=== PATIENT | female | born 1960 | race Caucasian/White ===

== ENCOUNTER 2016-08-19 16:18 | Emergency (ER) | payer OTHER ==
--- NOTE | ~2016-08-19 | CT57 ---
[facility]. [facility] A Service of [facility] & [facility] RADIOLOGY TEXT RESULTS PATIENT: NEYMAR GIRON LOCATION: SED : 60 UNIT #: [id number] AGE: [address]: CLOVER STEVENSON SEX: F ORDER DR: [id number] [address] [address] [id number] E MR#: [id number] Acc #: [id number] NAME: NEYMAR GIRON : 1960 SEX: F STUDY DATE/TIME: 08/19/2016 18:11 UNIT: SED ROOM: STUDY DESCRIPTION: CT Chest Wo Cont Attending Physician: Clover Stevenson Aprn Ordering Physician: Clover Stevenson Aprn Primary Care Physician: Anna Finnegan M.D. MEDICAL IMAGING REPORT This report is preliminary unless electronic signature is present. EXAM Chest CT no contrast, 08/19/2016 INDICATION 56-year-old female with a muscle spasm under the right breast for years. Pain will not go away today. TECHNIQUE Noncontrast CT of the chest was performed. We have no comparison studies. This CT exam was performed with one or more of the following radiation dose reduction techniques: automatic exposure control, adjustment of mA and/or kV according to patient size, and iterative reconstruction. FINDINGS Please insert CT no swelling which. Exam degraded by noncontrast technique. Lungs are clear. No effusion or pneumothorax. There are 4 or 5 less than 4 mm noncalcified nodular densities in both lungs. These are technically indeterminate. Based upon Fleischner Criteria, however, if the patients is at low risk for malignancy, then no further followup is necessary. If the patient is at higher risk for malignancy then interval followup Juan at low risk for malignancy then no further follow up is necessary. If the patient is at high risk for malignancy and interval followup CT should occur in 1 year. Included thyroid is unremarkable. There is no pericardial effusion. Aorta unremarkable. No adenopathy. Probable prominent breast tissue inferiorly in the breasts bilaterally. If not recently performed, mammography would be recommend for further assessment of the breasts. Included upper abdomen demonstrates surgical absence of the gallbladder. No suspicious bone lesion. No rib fracture. [facility] A Service of [facility] & [facility] RADIOLOGY TEXT RESULTS PATIENT: NEYMAR GIRON LOCATION: SED : 60 UNIT #: [id number] AGE: [address]: CLOVER STEVENSON SEX: F ORDER DR: IMPRESSION 1. No clearly acute process identified. 2. Probable prominent breast tissue bilaterally. This could be better assessed with dedicated mammography if not recently performed. 3. Noncalcified lung nodules bilaterally measuring less than 4 mm. See followup recommendations in the body of the report. Dictated by... Gaetano Medina M.D. THIS IS AN ELECTRONICALLY VERIFIED REPORT Gaetano Medina M.D. at 08/20/2016 2:31 PM Gayatri TD: 08/20/2016 05:13 JOB #: [id number] MEDICAL IMAGING REPORT Page 1 of 1
[~2016-08-19 16:18] MED LIST: ATIVAN PO; BENADRYL25 M3 PO; CLEOCIN PO; DOCUSATE SODIU100 MG PO; EFFEXOR37.5 MG PO; HYDROCORTISONE15 G3 TOP; JANUMET XR 1001 EACH PO; KEFLEX500 MG PO; LEVO-T100 MCG PO; LIDOCAINE-HC 3-07 G2 TOP; LIPITOR40 MG PO; MOBIC PO; NO MEDICATIONS; OMEPRAZOLE40 M1 PO; RANITIDINE HCL150 M1 PO; SYNTHROID0.1 MG PO; ULTRAM PO; VITAMIN D50000 UNIT PO; ZESTRIL2.5 MG PO
[2016-08-19] MEDS ORDERED: FLEXERIL10 MG PO (19:39)
== END 2016-08-19 19:39 | disposition home or self-care (01) ==
LOC: SED 16:18
DX: R07.89 Other chest pain (principal); E11.9 Type 2 diabetes mellitus without complications; K21.9 Gastro-esophageal reflux disease without esophagitis; Z98.890 Other specified postprocedural states; Z90.49 Acquired absence of other specified parts of digestive tract; Z98.51 Tubal ligation status
CPT/HCPCS: 71250; 99285

== ENCOUNTER → 2016-08-29 | Outpatient (CLI) | payer OTHER ==
[~2016-08-29] MED LIST changes: +ACID CONTROL150 M1; +DOK100 MG; +EFFEXOR37.5 MG; +FLEXERIL10 MG PO; +LEVOTHYROXINE100 MC1; +LIPITOR40 MG; +LISINOPRIL; +OMEPRAZOLE40 M1
--- NOTE | ~2016-08-29 | CT2 ---
[facility] A Service of [facility] RADIOLOGY TEXT RESULTS PATIENT: NEYMAR GIRON LOCATION: [facility] : 60 UNIT #: [id number] AGE: [address]: Otis Sky MD SEX: F ORDER DR: [id number] [facility]. [place], [place] [address] [id number] O MR#: [id number] Acc #: [id number] NAME: NEYMAR GIRON. : 1960 SEX: F STUDY DATE/TIME: 08/29/2016 11:11 UNIT: CCA ROOM: STUDY DESCRIPTION: CT Abd and Pelv W Cont Attending Physician: Otis Sky M.D. Referring Physician: Otis Sky M.D. Ordering Physician: Otis Sky M.D. Primary Care Physician: Anna Finnegan M.D. MEDICAL IMAGING REPORT This report is preliminary unless electronic signature is present EXAM CT of the abdomen and pelvis with contrast. INDICATIONS Right upper quadrant pain and constipation for [address] of the abdomen and pelvis was performed following the administration of IV contrast. Coronal and sagittal reformatted images were obtained. This CT exam was performed with one or more of the following radiation dose reduction techniques: automatic exposure control, adjustment of mA and/or kV according to patient size, and iterative reconstruction. COMPARISON Correlate with chest CT 08/19/2016. FINDINGS The lung bases are clear. Cholecystectomy. The liver is unremarkable. The spleen contains multiple hypodensities, probably representing cysts. The kidneys, adrenal glands, and pancreas are unremarkable. PELVIS: There is a large amount of stool in the colon, consistent with the patient's history of constipation. There is no free fluid. The remainder of the pelvis is unremarkable. The bone windows are unremarkable. IMPRESSION 1. Large amount of stool in the colon consistent with history of constipation. 2. Cholecystectomy. [facility] A Service [facility] RADIOLOGY TEXT RESULTS PATIENT: NEYMAR GIRON LOCATION: [facility] : 60 UNIT #: [id number] AGE: [address]: Otis Sky MD SEX: F ORDER DR: Dictated by... Lopez Mulligan M.D. THIS IS AN ELECTRONICALLY VERIFIED REPORT Lopez Mulligan M.D. at 08/30/2016 7:17 AM MASSIEL/kael TD: 08/29/2016 16:01 JOB #: [id number] MEDICAL IMAGING REPORT Page 1 of 1 COPY
[2016-08-29 08:03] LABS: HEMATOCRIT 38.9 % (35.0-45.0); HEMOGLOBIN 12.6 gm/dL (12.0-16.0); MEAN CELL VOLUME 92.8 FL (83-96); MEAN CORPUSCULAR HGB CONC 32.4 g/dL (30-36); MEAN PLATELET VOLUME 8.7 FL (6.5-11.5); RED BLOOD COUNT 4.2 X10e (3.90-5.30); RED CELL DISTRIBUTION WIDTH 13.7 % (11.0-15.5); WHITE BLOOD COUNT 8.6 X10e3 (4.0-10.5)
[2016-08-29 08:33] LABS: BILIRUBIN,TOTAL 0.3 mg/dL (0.2-2.0); BUN/CREATININE RATIO 8.33; CALCIUM SERUM 9.1 mg/dL (8.4-10.2); CREATININE SERUM 1.2 mg/dL (0.6-1.4); GLOM FILT RATE Estimated 50.5 mL/min (>60); POTASSIUM 4.2 mmol/L (3.5-5.1); PROTEIN TOTAL SERUM 7.6 g/dL (6.0-8.3)
== END | disposition home or self-care (01) ==
LOC: CCAT 06:49
PROVIDERS: Internal Medicine
DX: R10.11 Right upper quadrant pain (principal); Z90.49 Acquired absence of other specified parts of digestive tract
CPT/HCPCS: 36415; 74177; 80053; 82150; 83690; 85027; 96360; 96361; Q9967

== ENCOUNTER 2016-09-29 18:01 | Emergency (ER) | payer OTHER ==
[~2016-09-29] VITALS: Ht 157.5 cm; Wt 102.0 kg
--- NOTE | ~2016-09-29 | CR229 ---
[facility]. [facility] A Service of [facility] & [facility] RADIOLOGY TEXT RESULTS PATIENT: NEYMAR GIRON LOCATION: SED : 60 UNIT #: [id number] AGE: [address]: Jony Talley MD SEX: F ORDER DR: [id number] [address] [address] [id number] E MR#: [id number] Acc #: [id number] NAME: NEYMAR GIRON : 1960 SEX: F STUDY DATE/TIME: 09/29/2016 18:20 UNIT: SED ROOM: STUDY DESCRIPTION: CR Shoulder Min 2 View Lt Attending Physician: Jony Talley M.D. Ordering Physician: Anna Ventura M.D. Primary Care Physician: Anna Finnegan M.D. MEDICAL IMAGING REPORT This report is preliminary unless electronic signature is present. EXAM Left shoulder 2 views. HISTORY Fell in shower dislocating left shoulder FINDINGS Two views of the left shoulder demonstrate an anterior shoulder dislocation. Probable small Hill-Sachs impaction fracture. AC joint unremarkable. The left thorax and soft tissues unremarkable. IMPRESSION The left anterior shoulder dislocation with suspected small Hill-Sachs impaction injury. Dictated by... Becky Mulligan M.D. THIS IS AN ELECTRONICALLY VERIFIED REPORT Becky Mulligan M.D. at 09/30/2016 5:38 PM ABDIAS/odilia TD: 09/30/2016 08:15 JOB #: [id number] MEDICAL IMAGING REPORT Page 1 of 1
--- NOTE | ~2016-09-29 | CR226 ---
[facility]. [facility] A Service of [facility] & [facility] RADIOLOGY TEXT RESULTS PATIENT: NEYMAR GIRON LOCATION: SED : 60 UNIT #: [id number] AGE: [address]: Jony Talley MD SEX: F ORDER DR: [id number] [id number] E MR#: [id number] Acc #: [id number] NAME: NEYMAR GIRON : 1960 SEX: F STUDY DATE/TIME: 09/29/2016 19:28 UNIT: SED ROOM: STUDY DESCRIPTION: CR Shoulder 1 View Lt Attending Physician: Jony Talley M.D. Ordering Physician: Jony Talley M.D. Primary Care Physician: Anna Finnegan M.D. MEDICAL IMAGING REPORT This report is preliminary unless electronic signature is present. EXAM Left shoulder HISTORY Post reduction after fall in shower today. FINDINGS Single AP post reduction view of the left shoulder demonstrates apparent reduction the patient's anterior shoulder dislocation. No discrete fracture identified. Dictated by... Becky Mulligan M.D. THIS IS AN ELECTRONICALLY VERIFIED REPORT Becky Mulligan M.D. at 09/30/2016 5:39 PM Nimco TD: 09/30/2016 08:29 JOB #: [id number] MEDICAL IMAGING REPORT Page 1 of 1
--- NOTE | ~2016-09-29 | CR71 ---
[facility] A Service of [facility] & [facility] RADIOLOGY TEXT RESULTS PATIENT: NEYMAR GIRON LOCATION: SED : 60 UNIT #: [id number] AGE: [address]: Jony Talley MD SEX: F ORDER DR: [id number] [place] [id number] E MR#: [id number] Acc #: [id number] NAME: NEYMAR GIRON : 1960 SEX: F STUDY DATE/TIME: 09/29/2016 18:20 UNIT: SED ROOM: STUDY DESCRIPTION: CR Chest Single View Attending Physician: Jony Talley M.D. Ordering Physician: Anna Ventura M.D. Primary Care Physician: Anna Finnegan M.D. MEDICAL IMAGING REPORT This report is preliminary unless electronic signature is present. EXAM Portable chest HISTORY Fell in shower dislocating left shoulder today. FINDINGS AP upright portable view of the chest demonstrates no acute cardiopulmonary disease. Anterior dislocation left shoulder. Heart, mediastinum unremarkable. No pneumothorax or pulmonary contusion. Dictated by... Becky Mulligan M.D. THIS IS AN ELECTRONICALLY VERIFIED REPORT Becky Mulligan M.D. at 09/30/2016 5:38 PM ABDIAS/isidoro TD: 09/30/2016 08:03 JOB #: [id number] MEDICAL IMAGING REPORT Page 1 of 1
[~2016-09-29 18:01] MED LIST changes: -ACID CONTROL150 M1; -DOK100 MG; -EFFEXOR37.5 MG; -LEVOTHYROXINE100 MC1; -LIPITOR40 MG; -LISINOPRIL; -OMEPRAZOLE40 M1
[2016-09-29] MEDS ORDERED: LISINOPRIL (18:13)
[2016-09-29] MEDS ORDERED: LEVOTHYROXINE100 MC1 (18:13)
[2016-09-29] MEDS ORDERED: OMEPRAZOLE40 M1 (18:13)
[2016-09-29] MEDS ORDERED: EFFEXOR37.5 MG (18:14)
[2016-09-29] MEDS ORDERED: DOK100 MG (18:14)
[2016-09-29] MEDS ORDERED: ACID CONTROL150 M1 (18:14)
[2016-09-29] MEDS ORDERED: LIPITOR40 MG (18:14)
== END 2016-09-29 20:10 | disposition home or self-care (01) ==
LOC: SED 18:01
DX: S43.005A Unspecified dislocation of left shoulder joint, initial encounter (principal); W18.2XXA Fall in (into) shower or empty bathtub, initial encounter; Y92.009 Unspecified place in unspecified non-institutional (private) residence as the place of occurrence of the external cause
CPT/HCPCS: 23650; 36415; 71010; 73020; 73030; 96374; 96375; 99152; 99283; J2270; J2405; J3010